=== PATIENT | female | born 1975 | race Caucasian/White ===

== ENCOUNTER 2017-09-27 18:29 | Emergency (ER) | payer SELFPAY ==
[2017-09-27 19:22] LABS: Urine Bilirubin Negative (NEGATIVE); Urine Blood Negative /ul (NEGATIVE); Urine Ketone Negative (NEGATIVE); Urine Nitrite Negative (NEGATIVE); Urine Protein Negative (NEGATIVE); Urine Specific Gravity >=1.030 SP.GR. (1.005-1.010); Urine Urobilinogen Normal (NORMAL)
--- NOTE | 2017-09-27 19:27 | ERNOTE ---
ER Female HPI Stated Complaint: URINARY PROBLEMS Time Seen by Provider: 09/27/17 19:05 Source: patient Exam Limitations: no limitations Immunizations: IMMUNIZATION HX Immunizations Up to Date Yes History of Influenza Vaccine No Allergies/Adverse Reactions: Allergies No Known Allergies Allergy (Verified 09/27/17 19:15) Home Medications: HOME MEDICATIONS Nitrofurantoin/Nitrofuran Mac [Macrobid] 100 mg PO Q12H #14 capsule 09/27/17 [ Last Taken Unknown] Phenazopyridine HCl [Pyridium] 100 mg PO TID #6 tab 09/27/17 [Last Taken Unknown ] Terconazole [Terazol-3] 3 supp VG HS 3 Days box 09/27/17 [Last Taken Unknown] - History of Present Illness Narrative: Patient continues with vaginal itching. She was seen at [facility] and was found to have a yeast infection and had 2 rounds of Diflucan 100 mg and it seemed to be getting better however it is now returned. Patient does complain of a little bit of burning on urination as well. Patient states that she had a full battery of testing including GC chlamydia and yeast at [facility] Timing: Present: getting worse Quality: Present: moderate Onset Location: Present: vaginal Radiation: Present: none Activities at Onset: Present: none Prior Abdominal Problems: Present: similar symptoms Associated Symptoms: Present: denies symptoms Prior Treatment: Present: recently seen, treated by physician Review of Systems - Review of Systems Constitutional: Present: See HPI EYE: Present: no symptoms reported ENT: Present: no symptoms reported Respiratory: Present: no symptoms reported Cardiology: Present: no symptoms reported Gastrointestinal/Abdominal: Present: no symptoms reported Genitourinary: Present: See HPI Musculoskeletal: Present: no symptoms reported Skin: Present: no symptoms reported Neurological: Present: no symptoms reported Endocrine: Present: no symptoms reported Hematologic/Lymphatic: Present: no symptoms reported Psych: Present: no symptoms reported - Patient's Past Medical History Patient History - Medical: UTI'S Patient History - Cardiac/Respiratory: No pertinent hx Patient History - Cancer: No Hx of Cancer Patient History - Surgical Procedures: No surgical history Patient History - Other: None - Immunizations Immunizations Up to Date: Yes History of Influenza Vaccine: No Physical Exam - Physical Exam General Appearance: Present: wd/wn, alert, mild distress Head Exam: Present: normal inspection, no evidence of injury Eye Exam: Normal inspection: bilateral, PERRL: bilateral Ears, Nose, Throat: Present: normal ENT inspection, H, normal pharynx Neck: Present: normal inspection, nontender Respiratory: Present: no respiratory distress, normal breath sounds, no accessory muscle use, chest nontender, lungs clear Cardiovascular/Chest: Present: regular rate, rhythm, no murmur, normal peripheral pulses Gastrointestinal/Abdominal: Present: normal bowel sounds, nondistended, soft, no organomegaly, tenderness - suprapubic Rectal Exam: Present: deferred Pelvic Exam: Present: other - patient just underwent a pelvic examination with full testing at [facility] Back Exam: Present: normal inspection, normal range of motion Extremity Exam: Present: normal inspection, non-tender, no edema, normal range of motion Neurological Exam: Present: alert, oriented, normal mood/affect Skin Exam: Present: normal color, warm/dry Lymphatic Exam: Present: no adenopathy ED Progress - Results and Orders Patient's Lab Results:: I have reviewed the patient's lab results. - Vital Signs Patient's Vital Signs:: I have reviewed the patient's vital signs. Plan - Plan Plan: Patient may require longer treatment for the yeast infection with perhaps Terazol 3. We will also treat urinary tract infection with Macrobid Departure Clinical Impression: Recurrent candidiasis of vagina - Departure Disposition: Home self-care Condition: Good Instructions: Vaginal Yeast Infection, Adult Referrals: Yeison Hernandes MD [Primary Care Provider] - Prescriptions: Nitrofurantoin/Nitrofuran Mac [Macrobid] 100 mg PO Q12H #14 capsule Phenazopyridine HCl [Pyridium] 100 mg PO TID #6 tab Terconazole [Terazol-3] 3 supp VG HS 3 Days box
[2017-09-27 19:31] LABS: Urine Appearance Clear; Urine Bacteria 1+; Urine Color Yellow; Urine RBC 0-5 /hpf (0-5)
[2017-09-27 19:48] VITALS: BP 118/78
== END 2017-09-27 19:42 | disposition home or self-care (01) ==
LOC: ER 18:29
DX: Z87.440 Personal history of urinary (tract) infections; B37.3 Candidiasis of vulva and vagina; R30.9 Painful micturition, unspecified